=== PATIENT | male | born 1970 | race Caucasian/White ===

== ENCOUNTER 2024-03-10 12:05 | Outpatient (CLI) | payer BC ==
[2024-03-10 15:13] LABS: BASOPHILS # (AUTO) 0.1 X10'3 (0-0.2); BASOPHILS % (AUTO) 1.1 % (0-1); EOSINOPHILS # (AUTO) 0.1 X10'3 (0-0.9); EOSINOPHILS % (AUTO) 1.2 % (0-6); HEMATOCRIT 45.6 % (42.0-52.0); HEMOGLOBIN 15.5 g/dl (14.0-17.9); LYMPHOCYTES # (AUTO) 1.6 X10'3 (1.1-4.8); LYMPHOCYTES % (AUTO) 25.6 % (21-51); MEAN CORPUSCULAR HEMOGLOBIN 29.4 PG (27.0-31.0); MEAN CORPUSCULAR HGB CONC 34.1 g/dL (33.0-36.5); MEAN CORPUSCULAR VOLUME 86.2 FL (78-98); MEAN PLATELET VOLUME 7.6 FL (7.4-10.4); MONOCYTES # (AUTO) 0.7 X10'3 (0-0.9); MONOCYTES % (AUTO) 11.3 % (2-12); NEUTROPHILS # (AUTO) 3.8 X10'3 (1.8-7.7); NEUTROPHILS % (AUTO) 60.8 % (42-75); PLATELET COUNT 372 X10'3 (140-440); RED BLOOD COUNT 5.29 X10'6 (4.70-6.10); RED CELL DISTRIBUTION WIDTH 14.2 % (11.5-14.5); WHITE BLOOD COUNT 6.3 X10'3 (4.5-11.0)
[2024-03-10 15:45] LABS: ALANINE AMINOTRANSFERASE 22 U/L (12-78); ALBUMIN 3.5 G/DL (3.4-5.0); ALBUMIN/GLOBULIN RATIO 0.8 (1.1-1.5); ALKALINE PHOSPHATASE 81 IU/L (46-116); ANION GAP 8 (8-16); BILIRUBIN,TOTAL 0.5 MG/DL (0.1-1.0); BLOOD UREA NITROGEN 21 MG/DL (7-18); BUN/CREATININE RATIO 17.6 (10.0-20.0); CALCIUM 8.9 MG/DL (8.5-10.1); CHLORIDE 108 MMOL/L (99-107); CHOL/HDL RATIO 3.2 (0.00-4.99); CHOLESTEROL 179 MG/DL (0-200); CREATININE 1.19 MG/DL (0.60-1.10); GLUCOSE 106 MG/DL (70-104); HDL CHOLESTEROL 56 MG/DL (35-60); LDL CHOLESTEROL 108 MG/DL (50-100); POTASSIUM 4.1 MMOL/L (3.5-5.1); SODIUM 142 MMOL/L (135-145); THYROID STIMULATING HORMONE 0.77 ulU/ml (0.34-4.50); TOTAL CARBON DIOXIDE 25.6 MMOL/L (24-32); TOTAL PROTEIN 7.7 G/DL (6.4-8.2); TRIGLYCERIDES 66 MG/DL (20-135); eGFR 63 ML/MIN
[2024-03-10 16:16] LABS: ASPARTATE AMINO TRANSFERASE 14 U/L (10-37)
[2024-03-12 11:10] LABS: PSA, ULTRASENSITIVE W/O SERIAL 11.4 ng/mL (0.000-4.000); THYROXINE (T4) 10.1 ug/dL (4.5-12.0)
== END 2024-03-10 23:59 | disposition home or self-care (01) ==
LOC: US 12:05
PROVIDERS: ATTEND Nurse Practitioner Family
DX: Z12.5 Encounter for screening for malignant neoplasm of prostate (principal); Z13.29 Encounter for screening for other suspected endocrine disorder; Z00.01 Encounter for general adult medical examination with abnormal findings; N39.0 Urinary tract infection, site not specified; E55.9 Vitamin D deficiency, unspecified
CPT/HCPCS: 36415; 76770; 80053; 80061; 82652; 84153; 84436; 84443; 85025

== ENCOUNTER 2024-03-27 14:39 | Outpatient (CLI) | payer BC | END 2024-03-27 23:59 | disposition home or self-care (01) | LOC: RAD 14:39 | PROVIDERS: ATTEND Nurse Practitioner Family | DX: R97.20 Elevated prostate specific antigen [PSA] (principal); R33.9 Retention of urine, unspecified; Z87.448 Personal history of other diseases of urinary system | CPT/HCPCS: 76770 ==

== ENCOUNTER 2024-04-03 14:00 | Outpatient (CLI) | payer BC, MEDICAID | END 2024-04-03 23:59 | disposition home or self-care (01) | LOC: RAD 14:00 | PROVIDERS: ATTEND Podiatrist Foot & Ankle Surgery | DX: M19.071 Primary osteoarthritis, right ankle and foot (principal); M77.31 Calcaneal spur, right foot; M25.474 Effusion, right foot; M25.471 Effusion, right ankle; M25.472 Effusion, left ankle; M24.071 Loose body in right ankle; M21.6X1 Other acquired deformities of right foot; M21.6X2 Other acquired deformities of left foot; M79.671 Pain in right foot; M79.672 Pain in left foot; T84.84XA Pain due to internal orthopedic prosthetic devices, implants and grafts, initial encounter; M25.571 Pain in right ankle and joints of right foot; M25.572 Pain in left ankle and joints of left foot; Y82.8 Other medical devices associated with adverse incidents | CPT/HCPCS: 73700 ==

== ENCOUNTER 2024-04-09 21:16 | Emergency (ER) | payer BC, MEDICAID ==
[~2024-04-09] VITALS: Ht 193 cm; Wt 165.9 kg
[2024-04-09 22:09] LABS: BASOPHILS # (AUTO) 0.1 X10'3 (0-0.2); EOSINOPHILS % (AUTO) 0.4 % (0-6); HEMATOCRIT 51.5 % (42.0-52.0); HEMOGLOBIN 17.5 g/dl (14.0-17.9); LYMPHOCYTES # (AUTO) 1.2 X10'3 (1.1-4.8); LYMPHOCYTES % (AUTO) 13.5 % (21-51); MEAN CORPUSCULAR HEMOGLOBIN 28.6 PG (27.0-31.0); MEAN CORPUSCULAR VOLUME 84.1 FL (78-98); MONOCYTES # (AUTO) 0.5 X10'3 (0-0.9); NEUTROPHILS # (AUTO) 7.2 X10'3 (1.8-7.7); NEUTROPHILS % (AUTO) 79.1 % (42-75); PLATELET COUNT 250 X10'3 (140-440); RED BLOOD COUNT 6.12 X10'6 (4.70-6.10); RED CELL DISTRIBUTION WIDTH 14.3 % (11.5-14.5); WHITE BLOOD COUNT 9.1 X10'3 (4.5-11.0)
[2024-04-09 22:47] LABS: ALANINE AMINOTRANSFERASE 82 U/L (12-78); ALBUMIN 3.2 G/DL (3.4-5.0); ALBUMIN/GLOBULIN RATIO 0.9 (1.1-1.5); ANION GAP 16 (8-16); ASPARTATE AMINO TRANSFERASE 42 U/L (10-37); BILIRUBIN,TOTAL 0.7 MG/DL (0.1-1.0); BLOOD UREA NITROGEN 21 MG/DL (7-18); BUN/CREATININE RATIO 17.8 (10.0-20.0); CALCIUM 7.9 MG/DL (8.5-10.1); CHLORIDE 102 MMOL/L (99-107); CREATININE 1.18 MG/DL (0.60-1.10); GLUCOSE 156 MG/DL (70-104); POTASSIUM 4.2 MMOL/L (3.5-5.1); PRO BRAIN NATRIURETIC PEPTIDE < 30 PG/ML (0-125); SODIUM 138 MMOL/L (135-145); TOTAL CARBON DIOXIDE 20.5 MMOL/L (24-32); TOTAL PROTEIN 6.9 G/DL (6.4-8.2); eCRCL 87 ML/MIN; eGFR 64 ML/MIN
[2024-04-09 22:54] LABS: ALKALINE PHOSPHATASE 93 IU/L (46-116)
[2024-04-09] MEDS: ondansetron/PF 4mg/2ml inj IV ONE (23:34)
[2024-04-10] MEDS: magnesium hydroxide 30ml (MOM) UD suspension PO ONE (00:35)
[2024-04-10] MEDS: LIDOcaine 2% Viscous 15ml cup MM ONE (00:35)
[2024-04-10] MEDS: pantoprazole 40 MG vial IV ONE (02:29)
[2024-04-10] MEDS: ondansetron/PF 4mg/2ml inj IV ONE (02:31)
[2024-04-10] MEDS: acetaminophen 1,000mg/100ml IV 100 ML IV ONE (02:32)
[2024-04-10] MEDS: LORazepam 2 mg/ml vial IV ONE ×2 (02:32→03:45)
[2024-04-10] MEDS: normal saline 1000ML IV soln IVB ONE (03:38)
[2024-04-10] MEDS: ketorolac trometh 15mg/ml vial 15 MG/ML ML IV ONE (04:06)
[2024-04-10 04:29] VITALS: TEMP 97.8
[2024-04-10] MEDS ORDERED: ONDA-243 PO (05:04)
[2024-04-10] MEDS: normal saline 1000ml 1,000 ML IV ONE (05:10)
[2024-04-10] MEDS: morphine 4 MG/ML inj SYRINge IV ONE (05:55)
[2024-04-10] MEDS: proCHLORperazine 10 MG/2 ml inj IV ONE (05:55)
[2024-04-10 07:34] VITALS: BP 158/108; PULSE 92; RESP 18; O2SAT 96
[2024-04-11] MEDS ORDERED: NALT50TA5 PO (04:25)
[2024-04-11] MEDS ORDERED: TYL650S RC (04:25)
[2024-04-11] MEDS ORDERED: PANT40TA54 PO (04:25)
== END 2024-04-10 07:15 | disposition home or self-care (01) ==
LOC: ER 21:17 → EEVIPCON 21:17 → ER 04-10 07:15
DX: F10.10 Alcohol abuse, uncomplicated (principal); R11.2 Nausea with vomiting, unspecified; K29.20 Alcoholic gastritis without bleeding; Z88.2 Allergy status to sulfonamides; Y90.9 Presence of alcohol in blood, level not specified
CPT/HCPCS: 36415; 71045; 80053; 83880; 84484; 85025; 93005; 96361; 96365; 96368; 96375; 96376; 99285; J0131; J0780; J1885; J2060; J2270; J2405; J2470; J7030; A4615

== ENCOUNTER 2024-04-11 02:28 | Inpatient (IN) | payer BC, MEDICAID ==
[~2024-04-11] VITALS: Ht 193 cm; Wt 176.8 kg
[~2024-04-11 02:28] MED LIST: ONDA-243 PO
[2024-04-11 03:19] LABS: BASOPHILS # (AUTO) 0.1 X10'3 (0-0.2); BASOPHILS % (AUTO) 0.6 % (0-1); EOSINOPHILS # (AUTO) 0.1 X10'3 (0-0.9); EOSINOPHILS % (AUTO) 0.9 % (0-6); HEMATOCRIT 46.8 % (42.0-52.0); LYMPHOCYTES # (AUTO) 1.6 X10'3 (1.1-4.8); MEAN CORPUSCULAR HEMOGLOBIN 28.8 PG (27.0-31.0); MEAN CORPUSCULAR HGB CONC 34.3 g/dL (33.0-36.5); MEAN CORPUSCULAR VOLUME 83.8 FL (78-98); MONOCYTES # (AUTO) 0.6 X10'3 (0-0.9); MONOCYTES % (AUTO) 6.6 % (2-12); NEUTROPHILS # (AUTO) 7.4 X10'3 (1.8-7.7); NEUTROPHILS % (AUTO) 75.9 % (42-75); PLATELET COUNT 203 X10'3 (140-440); RED BLOOD COUNT 5.58 X10'6 (4.70-6.10); RED CELL DISTRIBUTION WIDTH 14.4 % (11.5-14.5); WHITE BLOOD COUNT 9.8 X10'3 (4.5-11.0)
[2024-04-11 03:32] LABS: ALANINE AMINOTRANSFERASE 58 U/L (12-78); ALBUMIN 3.2 G/DL (3.4-5.0); ALKALINE PHOSPHATASE 100 IU/L (46-116); ANION GAP 11 (8-16); ASPARTATE AMINO TRANSFERASE 30 U/L (10-37); BLOOD UREA NITROGEN 24 MG/DL (7-18); CHLORIDE 103 MMOL/L (99-107); CREATININE 1.33 MG/DL (0.60-1.10); GLUCOSE 111 MG/DL (70-104); POTASSIUM 3.9 MMOL/L (3.5-5.1); SODIUM 135 MMOL/L (135-145); TOTAL CARBON DIOXIDE 20.9 MMOL/L (24-32); TOTAL PROTEIN 6.5 G/DL (6.4-8.2); eCRCL 77 ML/MIN; eGFR 56 ML/MIN
[2024-04-11] MEDS: ondansetron/PF 4mg/2ml inj IV ONE (03:32)
[2024-04-11] MEDS: morphine 4 MG/ML inj SYRINge IV ONE (03:32)
[2024-04-11 03:43] LABS: LIPASE > 375 U/L (16-77)
[2024-04-11] MEDS: fentaNYL/PF 50MCG/1 ML 2ML syringe IV ONE (03:59)
[2024-04-11] MEDS: normal saline 1000ML IV soln IVB ONE (04:02)
[2024-04-11] MEDS ORDERED: TYL650S RC (04:25)
[2024-04-11] MEDS ORDERED: PANT40TA54 PO (04:25)
[2024-04-11] MEDS ORDERED: NALT50TA5 PO (04:25)
[2024-04-11] MEDS ORDERED: acetaminophen 325mg tablet PO PRN (04:45)
[2024-04-11] MEDS ORDERED: mag hydrox/Alum hydrox/simeth 30ml oral suspension PO PRN (04:45)
[2024-04-11] MEDS ORDERED: magnesium Cl slow-release 64mg tablet PO PRN (04:45)
[2024-04-11] MEDS ORDERED: HYDROmorphone/PF 0.2 MG/ML SYRINGE IV PRN (04:45)
[2024-04-11] MEDS ORDERED: ondansetron/PF 4mg/2ml inj IV PRN (04:45)
[2024-04-11] MEDS ORDERED: potassium Cl 20 mEq SR tablet PO PRN ×2 (04:45)
[2024-04-11] MEDS ORDERED: magnesium sulf-water 4G/100mL 100 ML IV PRN (04:45)
[2024-04-11] MEDS ORDERED: magnesium sulf-water 2g/50mL 50 ML IV PRN (04:45)
[2024-04-11] MEDS ORDERED: potassium Cl 40MEQ/1/2NS 520ml 520 ML IV PRN (04:45)
[2024-04-11] MEDS ORDERED: HYDROmorphone inj. 0.5 MG/0.5 ML DISP.SYRIN IV PRN (04:45)
[2024-04-11] MEDS: metoclopramide 5 mg/ml inj IV SCH (04:50)
[2024-04-11] MEDS: HYDROmorphone inj. 0.5 MG/0.5 ML DISP.SYRIN IV ONE ×2 (05:06→06:50)
[2024-04-11] MEDS: pantoprazole 40 MG vial IV SCH (05:57)
[2024-04-11] MEDS: K and/or MAG REPLACEMENT MC SCH (06:34)
[2024-04-11] MEDS: docusate sod 100mg capsule PO SCH (06:34)
[2024-04-11] MEDS: normal saline 1000ml 1,000 ML IV ONE (06:49)
[2024-04-11] MEDS ORDERED: LORazepam 2 mg/ml vial IV PRN (06:50)
[2024-04-11] MEDS: normal saline 1000ml 1,000 ML IV SCH (06:50)
[2024-04-11] MEDS ORDERED: haloperidol lactate 5mg/ml inj IM PRN ×2 (06:50→13:15)
[2024-04-11 07:28] LABS: MAGNESIUM 2.3 MG/DL (1.5-2.4); POTASSIUM 3.9 MMOL/L (3.5-5.1)
[2024-04-11 07:30] LABS: BILIRUBIN,URINE NEGATIVE (Neg); CLARITY,URINE CLEAR (Clear); COLOR,URINE YELLOW (Yellow); GLUCOSE, URINE NEGATIVE (Neg); KETONES,URINE NEGATIVE (Neg); LEUKOCYTE ESTERASE ,URINE NEGATIVE (Neg); NITRITES, URINE NEGATIVE (Neg); OCCULT BLOOD,URINE NEGATIVE (Neg); PROTEIN,URINE NEGATIVE (Neg); UA COLLECTION TYPE NON-SPECIFIED; UROBILINOGEN,URINE 0.2 E.U/dL (0.2-1.0)
[2024-04-11] MEDS: thiamine 100mg/ml 2ml inj. IV SCH (07:35)
[2024-04-11] MEDS: multivitamins, therapeutics tablet PO SCH (07:36)
[2024-04-11] MEDS: folic acid 1mg/0.2ml inj IV SCH (07:37)
[2024-04-11 07:53] LABS: LIPASE > 375 U/L (16-77)
[2024-04-11 08:18] LABS: OSMOLALITY 285 MOSM/K (280-300)
[2024-04-11] MEDS: ketorolac trometh 15mg/ml vial 15 MG/ML ML IV ONE (08:39)
[2024-04-11 08:42] LABS: CHOL/HDL RATIO 3.4 (0.00-4.99); CHOLESTEROL 162 MG/DL (0-200); HDL CHOLESTEROL 47 MG/DL (35-60); LDL CHOLESTEROL 81 MG/DL (50-100); TRIGLYCERIDES 251 MG/DL (20-135)
[2024-04-11] MEDS: HYDROmorphone 1 mg/ml syringe IV ONE (10:53)
[2024-04-11 11:03] VITALS: BP 155/88; PULSE 85; RESP 20; O2SAT 95
[2024-04-11] MEDS: HYDROmorphone inj. 0.5 MG/0.5 ML DISP.SYRIN IV PRN (13:07)
[2024-04-11] MEDS: dextrose 5%-normal saline 1,000 ML IV SCH (13:45)
[2024-04-11] MEDS: LORazepam 2 mg/ml vial IV PRN (17:36)
[2024-04-11 18:00] VITALS: BP 149/72; PULSE 92; RESP 18; TEMP 98.1; O2SAT 97
[2024-04-11] MEDS: chlordiazePOXIDE 25mg capsule PO SCH (19:23)
[2024-04-11 20:00] VITALS: RESP 18; O2SAT 97
[2024-04-11 22:00] VITALS: BP 161/79; PULSE 92; RESP 18; TEMP 97.1; O2SAT 93
[2024-04-12 05:00] VITALS: BP 177/90; PULSE 98; RESP 18; TEMP 98.4; O2SAT 94
[2024-04-12] MEDS: hydrALAZINE 20mg/ml inj. IV ONE (05:49)
[2024-04-12 06:56] LABS: BASOPHILS % (AUTO) 0.3 % (0-1); EOSINOPHILS # (AUTO) 0.2 X10'3 (0-0.9); EOSINOPHILS % (AUTO) 2.6 % (0-6); HEMATOCRIT 40.7 % (42.0-52.0); HEMOGLOBIN 13.8 g/dl (14.0-17.9); LYMPHOCYTES # (AUTO) 0.9 X10'3 (1.1-4.8); LYMPHOCYTES % (AUTO) 12.5 % (21-51); MEAN CORPUSCULAR HEMOGLOBIN 29.1 PG (27.0-31.0); MEAN CORPUSCULAR VOLUME 85.4 FL (78-98); MEAN PLATELET VOLUME 8.3 FL (7.4-10.4); MONOCYTES # (AUTO) 0.4 X10'3 (0-0.9); MONOCYTES % (AUTO) 6.2 % (2-12); NEUTROPHILS # (AUTO) 5.5 X10'3 (1.8-7.7); NEUTROPHILS % (AUTO) 78.4 % (42-75); PLATELET COUNT 166 X10'3 (140-440); RED BLOOD COUNT 4.76 X10'6 (4.70-6.10); RED CELL DISTRIBUTION WIDTH 14.4 % (11.5-14.5)
[2024-04-12 07:07] LABS: PROTHROMBIN TIME 10.5 SECONDS (9.0-12.0)
[2024-04-12 07:15] LABS: ALANINE AMINOTRANSFERASE 117 U/L (12-78); ALBUMIN 2.8 G/DL (3.4-5.0); ALBUMIN/GLOBULIN RATIO 0.8 (1.1-1.5); ALKALINE PHOSPHATASE 172 IU/L (46-116); AMYLASE 385 U/L (25-115); ANION GAP 7 (8-16); ASPARTATE AMINO TRANSFERASE 98 U/L (10-37); BILIRUBIN,TOTAL 0.9 MG/DL (0.1-1.0); BLOOD UREA NITROGEN 16 MG/DL (7-18); CALCIUM 7.7 MG/DL (8.5-10.1); CHLORIDE 105 MMOL/L (99-107); CREATININE 1.07 MG/DL (0.60-1.10); GLUCOSE 105 MG/DL (70-104); PHOSPHORUS 3.3 MG/DL (2.3-4.5); SODIUM 136 MMOL/L (135-145); TOTAL CARBON DIOXIDE 23.6 MMOL/L (24-32); TOTAL PROTEIN 6.1 G/DL (6.4-8.2); eCRCL 96 ML/MIN; eGFR 72 ML/MIN
[2024-04-12 07:26] LABS: LIPASE > 375 U/L (16-77)
[2024-04-12 09:28] LABS: TOTAL PROTEIN,URINE RANDOM 29.1 MG/DL
[2024-04-12 10:00] VITALS: BP 153/90; PULSE 97; RESP 18; TEMP 98; O2SAT 96
[2024-04-12 18:00] VITALS: BP 147/78; PULSE 101; RESP 18; TEMP 97.6; O2SAT 94
[2024-04-12] MEDS ORDERED: HYDROmorphone/PF 0.2 MG/ML SYRINGE IV PRN (18:10)
[2024-04-12] MEDS: ringers solution, lacted 1,000 ML IV SCH (18:46)
[2024-04-12] MEDS: haloperidol 5mg tablet PO PRN (18:50)
[2024-04-12 20:00] VITALS: RESP 18; O2SAT 94
[2024-04-12 22:00] VITALS: BP 153/98; PULSE 92; RESP 19; TEMP 97.6; O2SAT 93
[2024-04-13 06:00] VITALS: BP 138/78; PULSE 90; RESP 20; TEMP 98.1; O2SAT 95
[2024-04-13] MEDS: HYDROmorphone inj. 0.5 MG/0.5 ML DISP.SYRIN IV PRN (07:38)
[2024-04-13 08:04] LABS: BASOPHILS % (AUTO) 0.4 % (0-1); EOSINOPHILS # (AUTO) 0.2 X10'3 (0-0.9); EOSINOPHILS % (AUTO) 3.4 % (0-6); HEMOGLOBIN 13.4 g/dl (14.0-17.9); LYMPHOCYTES # (AUTO) 0.9 X10'3 (1.1-4.8); MEAN CORPUSCULAR HEMOGLOBIN 28.9 PG (27.0-31.0); MEAN CORPUSCULAR HGB CONC 33.6 g/dL (33.0-36.5); MEAN PLATELET VOLUME 8.1 FL (7.4-10.4); MONOCYTES # (AUTO) 0.4 X10'3 (0-0.9); NEUTROPHILS # (AUTO) 4.8 X10'3 (1.8-7.7); NEUTROPHILS % (AUTO) 75.2 % (42-75); PLATELET COUNT 153 X10'3 (140-440); RED BLOOD COUNT 4.65 X10'6 (4.70-6.10); RED CELL DISTRIBUTION WIDTH 14.7 % (11.5-14.5); WHITE BLOOD COUNT 6.3 X10'3 (4.5-11.0)
[2024-04-13 08:16] LABS: ALANINE AMINOTRANSFERASE 73 U/L (12-78); ALBUMIN 2.5 G/DL (3.4-5.0); ALBUMIN/GLOBULIN RATIO 0.7 (1.1-1.5); ALKALINE PHOSPHATASE 142 IU/L (46-116); ANION GAP 7 (8-16); ASPARTATE AMINO TRANSFERASE 41 U/L (10-37); BILIRUBIN,TOTAL 0.8 MG/DL (0.1-1.0); BLOOD UREA NITROGEN 10 MG/DL (7-18); BUN/CREATININE RATIO 11.5 (10.0-20.0); CALCIUM 7.7 MG/DL (8.5-10.1); CHLORIDE 106 MMOL/L (99-107); CREATININE 0.87 MG/DL (0.60-1.10); GLUCOSE 94 MG/DL (70-104); MAGNESIUM 2.2 MG/DL (1.5-2.4); PHOSPHORUS 3.3 MG/DL (2.3-4.5); SODIUM 138 MMOL/L (135-145); TOTAL CARBON DIOXIDE 24.6 MMOL/L (24-32); TOTAL PROTEIN 5.9 G/DL (6.4-8.2); eCRCL 118 ML/MIN; eGFR > 90 ML/MIN
[2024-04-13 08:38] LABS: PROTHROMBIN TIME 10.2 SECONDS (9.0-12.0)
[2024-04-13 08:41] LABS: LIPASE > 375 U/L (16-77)
[2024-04-13] MEDS: magnesium hydroxide 30ml (MOM) UD suspension PO PRN (09:17)
[2024-04-13 11:00] VITALS: BP 124/73; PULSE 84; RESP 19; TEMP 97.5; O2SAT 94
[2024-04-13] MEDS ORDERED: morphine 2 MG/ML inj. syringe IV PRN (11:10)
[2024-04-13] MEDS ORDERED: methylnaltrexone br 12mg/0.6ml inj***SubQ only SQ PRN (11:10)
[2024-04-13] MEDS ORDERED: HYDROcodone/acetaminophen 5mg/325mg tablet PO PRN (11:10)
[2024-04-13] MEDS: morphine 2 MG/ML inj. syringe IV PRN (11:21)
[2024-04-13] MEDS: HYDROcodone/acetaminophen 10/325mg tab PO PRN (14:39)
[2024-04-13] MEDS: LORazepam 2 mg/ml vial IV PRN (14:41)
[2024-04-13 18:00] VITALS: BP 158/96; PULSE 90; RESP 17; TEMP 98.1; O2SAT 95
[2024-04-13 20:10] VITALS: RESP 18
[2024-04-13] MEDS: polyethylene glycol 3350 17gm powd pack PO SCH (20:33)
[2024-04-13 22:00] VITALS: BP 133/81; PULSE 109; RESP 12; TEMP 97.4; O2SAT 98
[2024-04-13] MEDS ORDERED: guaiFENesin 200 MG/10 ML oral syrup UD cup PO PRN (22:45)
[2024-04-13] MEDS: guaiFENesin 200 MG/10 ML oral syrup UD cup PO PRN (23:11)
[2024-04-14] MEDS: LORazepam 1 MG tablet PO PRN (00:17)
[2024-04-14 06:00] VITALS: BP 143/98; PULSE 90; RESP 14; TEMP 97.3; O2SAT 94
[2024-04-14 06:19] LABS: BASOPHILS % (AUTO) 0.7 % (0-1); EOSINOPHILS # (AUTO) 0.3 X10'3 (0-0.9); EOSINOPHILS % (AUTO) 5.8 % (0-6); HEMATOCRIT 37.5 % (42.0-52.0); HEMOGLOBIN 12.8 g/dl (14.0-17.9); LYMPHOCYTES # (AUTO) 1.3 X10'3 (1.1-4.8); MEAN CORPUSCULAR HEMOGLOBIN 29.2 PG (27.0-31.0); MEAN CORPUSCULAR HGB CONC 34.1 g/dL (33.0-36.5); MEAN CORPUSCULAR VOLUME 85.6 FL (78-98); MEAN PLATELET VOLUME 7.9 FL (7.4-10.4); MONOCYTES # (AUTO) 0.5 X10'3 (0-0.9); MONOCYTES % (AUTO) 9.1 % (2-12); NEUTROPHILS # (AUTO) 3.2 X10'3 (1.8-7.7); NEUTROPHILS % (AUTO) 60.4 % (42-75); PLATELET COUNT 194 X10'3 (140-440); RED BLOOD COUNT 4.38 X10'6 (4.70-6.10); RED CELL DISTRIBUTION WIDTH 14.4 % (11.5-14.5); WHITE BLOOD COUNT 5.3 X10'3 (4.5-11.0)
[2024-04-14 06:51] LABS: PROTHROMBIN TIME 10.3 SECONDS (9.0-12.0)
[2024-04-14 07:02] LABS: ALANINE AMINOTRANSFERASE 62 U/L (12-78); ALBUMIN 2.7 G/DL (3.4-5.0); ALBUMIN/GLOBULIN RATIO 0.7 (1.1-1.5); ALKALINE PHOSPHATASE 131 IU/L (46-116); ANION GAP 9 (8-16); ASPARTATE AMINO TRANSFERASE 30 U/L (10-37); BILIRUBIN,TOTAL 0.6 MG/DL (0.1-1.0); BLOOD UREA NITROGEN 6 MG/DL (7-18); BUN/CREATININE RATIO 6.5 (10.0-20.0); CALCIUM 8.3 MG/DL (8.5-10.1); CHLORIDE 105 MMOL/L (99-107); CREATININE 0.92 MG/DL (0.60-1.10); GLUCOSE 107 MG/DL (70-104); LIPASE 312 U/L (16-77); MAGNESIUM 2.1 MG/DL (1.5-2.4); PHOSPHORUS 2.9 MG/DL (2.3-4.5); POTASSIUM 4.1 MMOL/L (3.5-5.1); SODIUM 137 MMOL/L (135-145); TOTAL CARBON DIOXIDE 23.5 MMOL/L (24-32); TOTAL PROTEIN 6.6 G/DL (6.4-8.2); eCRCL 111 ML/MIN; eGFR 85 ML/MIN
[2024-04-14 10:00] VITALS: BP 161/98; PULSE 95; RESP 16; TEMP 97.6; O2SAT 96
[2024-04-14] MEDS ORDERED: FOLI0.4T6 PO (10:56)
[2024-04-14] MEDS ORDERED: MULT-1085 PO (10:56)
[2024-04-14] MEDS ORDERED: THIA50TA10 PO (10:56)
[2024-04-14 11:34] LABS: HEMOGLOBIN A1C 5.6 % (4.5-6.2)
[2024-04-14] MEDS ORDERED: HYDR-3965 PO (13:36)
[2024-04-15] MEDS ORDERED: LORazepam 1 MG tablet PO PRN (13:15)
[2024-04-15] MEDS ORDERED: LORazepam 2 mg/ml vial IV PRN (13:15)
== END 2024-04-14 13:39 | disposition home or self-care (01) | DRG 438 ==
LOC: ER 02:28 → UNDOADMIN 04:42 → ED HOLD 04:42 → EEVIPCON 04:42 → ED HOLD 09:21 → EDBEDREQTM 09:37 → EDBEDREQSVC 09:37 → ORTHO 4S 10:25 → ED HOLD 10:25
PROVIDERS: ADMIT Internal Medicine Critical Care Medicine; ATTEND Family Medicine
PROC: 05HY33Z Insertion of Infusion Device into Upper Vein, Percutaneous Approach (ICD-10-PCS; principal; 2024-04-11)
PROC: B54NZZA Ultrasonography of Left Upper Extremity Veins, Guidance (ICD-10-PCS; 2024-04-11)
DX: K85.20 Alcohol induced acute pancreatitis without necrosis or infection (principal); N17.0 Acute kidney failure with tubular necrosis; Z68.42 Body mass index [BMI] 45.0-49.9, adult; E66.01 Morbid (severe) obesity due to excess calories; F10.10 Alcohol abuse, uncomplicated; Z98.84 Bariatric surgery status
CPT/HCPCS: 36410; 36415; 74176; 76937; 80053; 80061; 81003; 82150; 82570; 83036; 83690; 83735; 83930; 83935; 84100; 84132; 84156; 84300; 85025; 85610; 87081; 87207; 96374; 96375; 99285; A4615; C1751; G0378; J0360; J1171; J1885; J2060; J2270; J2405; J2470; J2765; J3010; J3411; J3490; J7030; J7042; J7120

== ENCOUNTER 2024-05-14 02:22 | Inpatient (IN) | payer BC, MEDICAID ==
[~2024-05-14] VITALS: Ht 193 cm; Wt 163.0 kg
[2024-05-14] VITALS (7 sets, daily range): BP systolic 127–195; BP diastolic 76–100; PULSE 65–97; RESP 15–27; TEMP 97.3–98.5; O2SAT 94–96
[~2024-05-14 02:22] MED LIST changes: +FOLI0.4T6 PO; +MULT-1085 PO; +NALT50TA5 PO; +PANT40TA54 PO; +THIA50TA10 PO; +TYL650S RC
[2024-05-14 02:45] LABS: BASOPHILS # (AUTO) 0.1 X10'3 (0-0.2); BASOPHILS % (AUTO) 1.2 % (0-1); EOSINOPHILS % (AUTO) 0.3 % (0-6); HEMATOCRIT 44.8 % (42.0-52.0); HEMOGLOBIN 15.1 g/dl (14.0-17.9); LYMPHOCYTES # (AUTO) 1.4 X10'3 (1.1-4.8); MEAN CORPUSCULAR HEMOGLOBIN 28.6 PG (27.0-31.0); MEAN CORPUSCULAR HGB CONC 33.7 g/dL (33.0-36.5); MEAN CORPUSCULAR VOLUME 85.1 FL (78-98); MEAN PLATELET VOLUME 6.9 FL (7.4-10.4); MONOCYTES # (AUTO) 0.4 X10'3 (0-0.9); MONOCYTES % (AUTO) 4.4 % (2-12); NEUTROPHILS % (AUTO) 80.1 % (42-75); PLATELET COUNT 280 X10'3 (140-440); RED BLOOD COUNT 5.26 X10'6 (4.70-6.10); RED CELL DISTRIBUTION WIDTH 16.4 % (11.5-14.5); WHITE BLOOD COUNT 9.9 X10'3 (4.5-11.0)
[2024-05-14 02:58] LABS: ALANINE AMINOTRANSFERASE 103 U/L (12-78); ALBUMIN/GLOBULIN RATIO 0.9 (1.1-1.5); ALKALINE PHOSPHATASE 218 IU/L (46-116); ANION GAP 10 (8-16); ASPARTATE AMINO TRANSFERASE 77 U/L (10-37); BILIRUBIN,TOTAL 0.6 MG/DL (0.1-1.0); BLOOD UREA NITROGEN 12 MG/DL (7-18); BUN/CREATININE RATIO 12.8 (10.0-20.0); CALCIUM 7.7 MG/DL (8.5-10.1); CHLORIDE 99 MMOL/L (99-107); CREATININE 0.94 MG/DL (0.60-1.10); GLUCOSE 117 MG/DL (70-104); SODIUM 135 MMOL/L (135-145); TOTAL PROTEIN 6.4 G/DL (6.4-8.2); eCRCL 109 ML/MIN; eGFR 83 ML/MIN
[2024-05-14 03:06] LABS: ETHANOL 14 MG/DL (<10); PRO BRAIN NATRIURETIC PEPTIDE 47 PG/ML (0-125)
[2024-05-14 03:21] LABS: LIPASE 43 U/L (16-77)
[2024-05-14] MEDS: diazepam 5mg tablet PO ONE (03:23)
[2024-05-14] MEDS: ondansetron 4mg rapidly disintigrating tab PO ONE (03:24)
[2024-05-14] MEDS: ketorolac trometh 30MG/ML vial 30 MG/ML VIAL IV ONE (03:51)
[2024-05-14] MEDS ORDERED: potassium Cl 20 mEq SR tablet PO PRN ×2 (04:05)
[2024-05-14] MEDS ORDERED: haloperidol 5mg tablet PO PRN (04:05)
[2024-05-14] MEDS ORDERED: acetaminophen 325mg tablet PO PRN (04:05)
[2024-05-14] MEDS ORDERED: potassium Cl 40MEQ/1/2NS 520ml 520 ML IV PRN (04:05)
[2024-05-14] MEDS ORDERED: mag hydrox/Alum hydrox/simeth 30ml oral suspension PO PRN (04:05)
[2024-05-14] MEDS ORDERED: dicyclomine 10 MG capsule PO PRN (04:05)
[2024-05-14] MEDS ORDERED: haloperidol lactate 5mg/ml inj IM PRN ×2 (04:05→05:05)
[2024-05-14] MEDS ORDERED: magnesium Cl slow-release 64mg tablet PO PRN (04:05)
[2024-05-14] MEDS ORDERED: magnesium sulf-water 2g/50mL 50 ML IV PRN (04:05)
[2024-05-14] MEDS ORDERED: bisacodyl 10mg suppository rectal RC PRN (04:05)
[2024-05-14] MEDS ORDERED: magnesium sulf-water 4G/100mL 100 ML IV PRN (04:05)
[2024-05-14] MEDS: normal saline 1000ml 1,000 ML IV SCH (04:33)
[2024-05-14] MEDS: cloNIDine 0.1 MG/24 HOUR patch (7 day patch) TD SCH (04:40)
[2024-05-14] MEDS ORDERED: HYDR-3973 PO (06:13)
[2024-05-14 06:43] LABS: MAGNESIUM 1.8 MG/DL (1.5-2.4); POTASSIUM 4.2 MMOL/L (3.5-5.1)
[2024-05-14] MEDS: LORazepam 2 mg/ml vial IV PRN ×4 (07:18→20:31)
[2024-05-14] MEDS: ondansetron/PF 4mg/2ml inj IV PRN (07:31)
[2024-05-14] MEDS: K and/or MAG REPLACEMENT MC SCH (08:00)
[2024-05-14] MEDS: docusate sod 100mg capsule PO SCH (09:07)
[2024-05-14] MEDS: enoxaparin 40mg/0.4ml syringe SUBCUT SCH (09:08)
[2024-05-14] MEDS: thiamine 100mg/ml 2ml inj. IV SCH (09:14)
[2024-05-14] MEDS: ondansetron/PF 4mg/2ml inj IV ONE (09:15)
[2024-05-14] MEDS: cloNIDine 0.1 mg tablet PO PRN (10:37)
[2024-05-14] MEDS: HYDROcodone/acetaminophen 5mg/325mg tablet PO PRN (10:37)
[2024-05-14] MEDS: atenolol 50mg tablet PO SCH (10:37)
[2024-05-14] MEDS: folic acid 1mg/0.2ml inj IV SCH (10:37)
[2024-05-14] MEDS: cyclobenzaprine 10mg tablet PO PRN (10:39)
[2024-05-14] MEDS: magnesium hydroxide 30ml (MOM) UD suspension PO PRN (12:19)
[2024-05-14] MEDS: LidoCAINE 2% Topical Jelly 11mL syringe (UROJET) TOP ONE (12:50)
[2024-05-14] MEDS: HYDROcodone/acetaminophen 10/325mg tab PO PRN (14:38)
[2024-05-15] VITALS (7 sets, daily range): BP systolic 123–136; BP diastolic 72–84; PULSE 65–80; RESP 15–20; TEMP 97.3–98.9; O2SAT 93–97
[2024-05-15 06:55] LABS: ALANINE AMINOTRANSFERASE 57 U/L (12-78); ALBUMIN 2.6 G/DL (3.4-5.0); ALBUMIN/GLOBULIN RATIO 0.9 (1.1-1.5); ALKALINE PHOSPHATASE 163 IU/L (46-116); ANION GAP 6 (8-16); ASPARTATE AMINO TRANSFERASE 37 U/L (10-37); BILIRUBIN,TOTAL 0.5 MG/DL (0.1-1.0); BLOOD UREA NITROGEN 17 MG/DL (7-18); BUN/CREATININE RATIO 17.5 (10.0-20.0); CALCIUM 8.1 MG/DL (8.5-10.1); CHLORIDE 99 MMOL/L (99-107); CREATININE 0.97 MG/DL (0.60-1.10); GLUCOSE 95 MG/DL (70-104); MAGNESIUM 2.1 MG/DL (1.5-2.4); PHOSPHORUS 3.4 MG/DL (2.3-4.5); POTASSIUM 3.8 MMOL/L (3.5-5.1); SODIUM 133 MMOL/L (135-145); TOTAL CARBON DIOXIDE 27.7 MMOL/L (24-32); TOTAL PROTEIN 5.6 G/DL (6.4-8.2); eCRCL 106 ML/MIN; eGFR 80 ML/MIN
[2024-05-15 07:49] LABS: BASOPHILS # (AUTO) 0.1 X10'3 (0-0.2); EOSINOPHILS # (AUTO) 0.1 X10'3 (0-0.9); EOSINOPHILS % (AUTO) 2.8 % (0-6); HEMATOCRIT 40.8 % (42.0-52.0); HEMOGLOBIN 13.7 g/dl (14.0-17.9); LYMPHOCYTES # (AUTO) 1.4 X10'3 (1.1-4.8); LYMPHOCYTES % (AUTO) 27.1 % (21-51); MEAN CORPUSCULAR HEMOGLOBIN 29.1 PG (27.0-31.0); MEAN CORPUSCULAR HGB CONC 33.5 g/dL (33.0-36.5); MEAN CORPUSCULAR VOLUME 86.8 FL (78-98); MEAN PLATELET VOLUME 7.4 FL (7.4-10.4); MONOCYTES # (AUTO) 0.3 X10'3 (0-0.9); MONOCYTES % (AUTO) 6.1 % (2-12); NEUTROPHILS # (AUTO) 3.3 X10'3 (1.8-7.7); PLATELET COUNT 223 X10'3 (140-440); RED CELL DISTRIBUTION WIDTH 16.2 % (11.5-14.5); WHITE BLOOD COUNT 5.2 X10'3 (4.5-11.0)
[2024-05-15] MEDS: metoclopramide 5 mg/ml inj IV PRN (08:25)
[2024-05-15 11:37] LABS: BILIRUBIN,URINE NEGATIVE (Neg); CLARITY,URINE CLEAR (Clear); COLOR,URINE YELLOW (Yellow); GLUCOSE, URINE NEGATIVE (Neg); KETONES,URINE NEGATIVE (Neg); LEUKOCYTE ESTERASE ,URINE NEGATIVE (Neg); NITRITES, URINE NEGATIVE (Neg); OCCULT BLOOD,URINE SMALL (Neg); PROTEIN,URINE NEGATIVE (Neg); UROBILINOGEN,URINE 0.2 E.U/dL (0.2-1.0)
[2024-05-15 11:43] LABS: UA COLLECTION TYPE CLN CATCH MIDSTREAM
[2024-05-15 11:53] LABS: URINE AMPHETAMINE SCREEN NEGATIVE (Neg); URINE BARBITUATE SCREEN POSITIVE (Neg); URINE BENZODIAZEPINES SCREEN POSITIVE (Neg); URINE CANNABINOID SCREEN NEGATIVE (Neg); URINE COCAINE SCREEN NEGATIVE (Neg); URINE METHADONE SCREEN NEGATIVE (Neg); URINE OPIATE SCREEN POSITIVE (Neg); URINE PHENCYCLIDINE SCREEN NEGATIVE (Neg)
[2024-05-15 12:21] LABS: BACTERIA,URINE NONE SEEN /HPF (Neg); MUCUS STRANDS NONE SEEN /LPF (Neg); RBC,URINE 0-2 /HPF (0-2); SQUAMOUS EPITHELIAL CELL,UR FEW /LPF (FEW); WBC,URINE 0-4 /HPF (0-4)
[2024-05-16] MEDS: LORazepam 2 mg/ml vial IV PRN (05:14)
[2024-05-16 06:00] VITALS: BP 139/94; PULSE 73; RESP 17; TEMP 98.9; O2SAT 95
[2024-05-16 06:20] LABS: ALANINE AMINOTRANSFERASE 44 U/L (12-78); ALBUMIN 2.6 G/DL (3.4-5.0); ALBUMIN/GLOBULIN RATIO 0.9 (1.1-1.5); ALKALINE PHOSPHATASE 140 IU/L (46-116); ANION GAP 6 (8-16); ASPARTATE AMINO TRANSFERASE 25 U/L (10-37); BILIRUBIN,TOTAL 0.5 MG/DL (0.1-1.0); BLOOD UREA NITROGEN 14 MG/DL (7-18); BUN/CREATININE RATIO 15.4 (10.0-20.0); CALCIUM 8.1 MG/DL (8.5-10.1); CHLORIDE 101 MMOL/L (99-107); CREATININE 0.91 MG/DL (0.60-1.10); GLUCOSE 92 MG/DL (70-104); MAGNESIUM 2.1 MG/DL (1.5-2.4); PHOSPHORUS 3.5 MG/DL (2.3-4.5); POTASSIUM 4.1 MMOL/L (3.5-5.1); SODIUM 135 MMOL/L (135-145); TOTAL CARBON DIOXIDE 27.6 MMOL/L (24-32); TOTAL PROTEIN 5.6 G/DL (6.4-8.2); eCRCL 113 ML/MIN; eGFR 86 ML/MIN
[2024-05-16 06:21] LABS: BASOPHILS # (AUTO) 0.1 X10'3 (0-0.2); BASOPHILS % (AUTO) 0.8 % (0-1); EOSINOPHILS # (AUTO) 0.2 X10'3 (0-0.9); HEMATOCRIT 38.8 % (42.0-52.0); HEMOGLOBIN 13.1 g/dl (14.0-17.9); LYMPHOCYTES # (AUTO) 1.3 X10'3 (1.1-4.8); LYMPHOCYTES % (AUTO) 14.5 % (21-51); MEAN CORPUSCULAR HEMOGLOBIN 29.3 PG (27.0-31.0); MEAN CORPUSCULAR HGB CONC 33.8 g/dL (33.0-36.5); MEAN CORPUSCULAR VOLUME 86.7 FL (78-98); MEAN PLATELET VOLUME 7.7 FL (7.4-10.4); MONOCYTES # (AUTO) 0.3 X10'3 (0-0.9); MONOCYTES % (AUTO) 3.7 % (2-12); NEUTROPHILS # (AUTO) 7.2 X10'3 (1.8-7.7); PLATELET COUNT 225 X10'3 (140-440); RED BLOOD COUNT 4.47 X10'6 (4.70-6.10); RED CELL DISTRIBUTION WIDTH 15.9 % (11.5-14.5); WHITE BLOOD COUNT 9.1 X10'3 (4.5-11.0)
[2024-05-16 10:00] VITALS: BP 146/80; PULSE 80; RESP 20; TEMP 98.5; O2SAT 95
[2024-05-16 10:45] VITALS: RESP 20; O2SAT 95
[2024-05-16 18:00] VITALS: BP 133/81; PULSE 67; RESP 18; TEMP 97; O2SAT 93
[2024-05-16] MEDS: LORazepam 0.5 MG tablet PO ONE (18:04)
[2024-05-16 20:00] VITALS: RESP 18; O2SAT 93
[2024-05-16 22:00] VITALS: BP 159/88; PULSE 74; RESP 20; TEMP 98.4; O2SAT 96
[2024-05-17] MEDS: LORazepam 1 MG tablet PO PRN (01:13)
[2024-05-17 06:06] VITALS: BP 179/93; PULSE 74; RESP 16; TEMP 97.9; O2SAT 92
[2024-05-17 07:38] LABS: BASOPHILS # (AUTO) 0.1 X10'3 (0-0.2); BASOPHILS % (AUTO) 0.9 % (0-1); EOSINOPHILS # (AUTO) 0.3 X10'3 (0-0.9); EOSINOPHILS % (AUTO) 4.5 % (0-6); LYMPHOCYTES % (AUTO) 17.7 % (21-51); MEAN CORPUSCULAR HEMOGLOBIN 28.9 PG (27.0-31.0); MEAN CORPUSCULAR HGB CONC 33.3 g/dL (33.0-36.5); MEAN CORPUSCULAR VOLUME 86.6 FL (78-98); MEAN PLATELET VOLUME 7.6 FL (7.4-10.4); MONOCYTES # (AUTO) 0.4 X10'3 (0-0.9); MONOCYTES % (AUTO) 6.1 % (2-12); NEUTROPHILS # (AUTO) 4.2 X10'3 (1.8-7.7); NEUTROPHILS % (AUTO) 70.8 % (42-75); PLATELET COUNT 223 X10'3 (140-440); RED BLOOD COUNT 4.51 X10'6 (4.70-6.10); RED CELL DISTRIBUTION WIDTH 16.1 % (11.5-14.5); WHITE BLOOD COUNT 5.9 X10'3 (4.5-11.0)
[2024-05-17 07:54] LABS: ALANINE AMINOTRANSFERASE 36 U/L (12-78); ALBUMIN 2.5 G/DL (3.4-5.0); ALBUMIN/GLOBULIN RATIO 0.8 (1.1-1.5); ALKALINE PHOSPHATASE 122 IU/L (46-116); ANION GAP 7 (8-16); ASPARTATE AMINO TRANSFERASE 25 U/L (10-37); BILIRUBIN,TOTAL 0.3 MG/DL (0.1-1.0); BLOOD UREA NITROGEN 10 MG/DL (7-18); BUN/CREATININE RATIO 11.8 (10.0-20.0); CALCIUM 8.3 MG/DL (8.5-10.1); CHLORIDE 106 MMOL/L (99-107); CREATININE 0.85 MG/DL (0.60-1.10); GLUCOSE 96 MG/DL (70-104); MAGNESIUM 2.2 MG/DL (1.5-2.4); PHOSPHORUS 3.6 MG/DL (2.3-4.5); POTASSIUM 3.7 MMOL/L (3.5-5.1); SODIUM 139 MMOL/L (135-145); TOTAL PROTEIN 5.7 G/DL (6.4-8.2); eCRCL 121 ML/MIN; eGFR > 90 ML/MIN
[2024-05-17 09:14] VITALS: RESP 16; O2SAT 92
[2024-05-17 10:10] VITALS: BP 161/84; PULSE 69; RESP 18; TEMP 97.7; O2SAT 95
[2024-05-17 18:00] VITALS: BP 149/87; PULSE 69; RESP 18; TEMP 97.6; O2SAT 92
[2024-05-17 20:00] VITALS: RESP 18; O2SAT 92
[2024-05-17 22:00] VITALS: BP 122/89; PULSE 67; RESP 20; TEMP 97.5; O2SAT 93
[2024-05-18 06:00] VITALS: BP 134/74; PULSE 62; RESP 22; TEMP 97.6; O2SAT 95
[2024-05-18 08:42] LABS: BASOPHILS # (AUTO) 0.1 X10'3 (0-0.2); BASOPHILS % (AUTO) 1.3 % (0-1); EOSINOPHILS # (AUTO) 0.4 X10'3 (0-0.9); EOSINOPHILS % (AUTO) 5.5 % (0-6); HEMOGLOBIN 14.3 g/dl (14.0-17.9); LYMPHOCYTES # (AUTO) 1.4 X10'3 (1.1-4.8); LYMPHOCYTES % (AUTO) 20.8 % (21-51); MEAN CORPUSCULAR HEMOGLOBIN 28.6 PG (27.0-31.0); MEAN CORPUSCULAR HGB CONC 32.6 g/dL (33.0-36.5); MEAN CORPUSCULAR VOLUME 87.6 FL (78-98); MEAN PLATELET VOLUME 8.3 FL (7.4-10.4); MONOCYTES # (AUTO) 0.5 X10'3 (0-0.9); MONOCYTES % (AUTO) 6.7 % (2-12); NEUTROPHILS # (AUTO) 4.6 X10'3 (1.8-7.7); NEUTROPHILS % (AUTO) 65.7 % (42-75); PLATELET COUNT 127 X10'3 (140-440); RED BLOOD COUNT 5.02 X10'6 (4.70-6.10); RED CELL DISTRIBUTION WIDTH 16.2 % (11.5-14.5); WHITE BLOOD COUNT 6.9 X10'3 (4.5-11.0)
[2024-05-18 08:56] LABS: ALANINE AMINOTRANSFERASE 34 U/L (12-78); ALBUMIN 2.6 G/DL (3.4-5.0); ALBUMIN/GLOBULIN RATIO 0.8 (1.1-1.5); ALKALINE PHOSPHATASE 113 IU/L (46-116); ANION GAP 6 (8-16); ASPARTATE AMINO TRANSFERASE 25 U/L (10-37); BILIRUBIN,TOTAL 0.3 MG/DL (0.1-1.0); BLOOD UREA NITROGEN 12 MG/DL (7-18); BUN/CREATININE RATIO 15.8 (10.0-20.0); CALCIUM 8.4 MG/DL (8.5-10.1); CHLORIDE 104 MMOL/L (99-107); CREATININE 0.76 MG/DL (0.60-1.10); GLUCOSE 90 MG/DL (70-104); MAGNESIUM 2.4 MG/DL (1.5-2.4); PHOSPHORUS 3.7 MG/DL (2.3-4.5); SODIUM 135 MMOL/L (135-145); TOTAL CARBON DIOXIDE 25.3 MMOL/L (24-32); TOTAL PROTEIN 5.9 G/DL (6.4-8.2); eCRCL 135 ML/MIN; eGFR > 90 ML/MIN
[2024-05-18 08:58] LABS: POTASSIUM 4.1 MMOL/L (3.5-5.1)
[2024-05-18 11:15] VITALS: RESP 18; O2SAT 96
[2024-05-18 18:00] VITALS: BP 139/84; PULSE 66; RESP 15; TEMP 97.8; O2SAT 96
[2024-05-18 20:15] VITALS: RESP 16; O2SAT 95
[2024-05-19] MEDS: LORazepam 1 MG tablet PO ONE (05:02)
[2024-05-19 06:00] VITALS: BP 153/95; PULSE 66; RESP 18; TEMP 96.9; O2SAT 93
[2024-05-19] MEDS ORDERED: FOLI1TAB27 PO (07:13)
[2024-05-19 07:14] LABS: BASOPHILS # (AUTO) 0.1 X10'3 (0-0.2); BASOPHILS % (AUTO) 1.2 % (0-1); EOSINOPHILS # (AUTO) 0.3 X10'3 (0-0.9); EOSINOPHILS % (AUTO) 4.8 % (0-6); HEMATOCRIT 44.3 % (42.0-52.0); HEMOGLOBIN 14.5 g/dl (14.0-17.9); LYMPHOCYTES # (AUTO) 1.4 X10'3 (1.1-4.8); LYMPHOCYTES % (AUTO) 18.9 % (21-51); MEAN CORPUSCULAR HEMOGLOBIN 28.7 PG (27.0-31.0); MEAN CORPUSCULAR HGB CONC 32.7 g/dL (33.0-36.5); MEAN PLATELET VOLUME 7.7 FL (7.4-10.4); MONOCYTES # (AUTO) 0.6 X10'3 (0-0.9); MONOCYTES % (AUTO) 8.8 % (2-12); NEUTROPHILS # (AUTO) 4.8 X10'3 (1.8-7.7); NEUTROPHILS % (AUTO) 66.3 % (42-75); PLATELET COUNT 187 X10'3 (140-440); RED BLOOD COUNT 5.03 X10'6 (4.70-6.10); RED CELL DISTRIBUTION WIDTH 16.7 % (11.5-14.5); WHITE BLOOD COUNT 7.2 X10'3 (4.5-11.0)
[2024-05-19 07:22] LABS: ALANINE AMINOTRANSFERASE 39 U/L (12-78); ALBUMIN 2.8 G/DL (3.4-5.0); ALBUMIN/GLOBULIN RATIO 0.8 (1.1-1.5); ALKALINE PHOSPHATASE 110 IU/L (46-116); ANION GAP 10 (8-16); ASPARTATE AMINO TRANSFERASE 31 U/L (10-37); BILIRUBIN,TOTAL 0.3 MG/DL (0.1-1.0); BLOOD UREA NITROGEN 11 MG/DL (7-18); BUN/CREATININE RATIO 12.9 (10.0-20.0); CALCIUM 8.5 MG/DL (8.5-10.1); CHLORIDE 102 MMOL/L (99-107); CREATININE 0.85 MG/DL (0.60-1.10); GLUCOSE 98 MG/DL (70-104); PHOSPHORUS 3.9 MG/DL (2.3-4.5); SODIUM 136 MMOL/L (135-145); TOTAL CARBON DIOXIDE 23.8 MMOL/L (24-32); TOTAL PROTEIN 6.2 G/DL (6.4-8.2); eCRCL 121 ML/MIN; eGFR > 90 ML/MIN
[2024-05-19 08:00] VITALS: RESP 18; O2SAT 93
[2024-05-19 08:23] VITALS: BP_SYST 153; PULSE 66
[2024-05-19 08:26] VITALS: RESP 16
== END 2024-05-19 11:22 | disposition home or self-care (01) | DRG 775 ==
LOC: ER 02:23 → ED HOLD 04:11 → ORTHO 4S 07:45
PROVIDERS: ADMIT Internal Medicine Critical Care Medicine; ATTEND Internal Medicine
DX: F10.930 Alcohol use, unspecified with withdrawal, uncomplicated (principal); K76.0 Fatty (change of) liver, not elsewhere classified; E87.1 Hypo-osmolality and hyponatremia; I25.10 Atherosclerotic heart disease of native coronary artery without angina pectoris; F41.9 Anxiety disorder, unspecified; I48.91 Unspecified atrial fibrillation; K59.00 Constipation, unspecified; R61 Generalized hyperhidrosis; R74.01 Elevation of levels of liver transaminase levels; S01.81XA Laceration without foreign body of other part of head, initial encounter; Y90.9 Presence of alcohol in blood, level not specified; W18.39XA Other fall on same level, initial encounter; I10 Essential (primary) hypertension; M54.2 Cervicalgia; E66.01 Morbid (severe) obesity due to excess calories; Z68.41 Body mass index [BMI] 40.0-44.9, adult; Z79.899 Other long term (current) drug therapy; Z88.2 Allergy status to sulfonamides; Z90.49 Acquired absence of other specified parts of digestive tract; Y93.89 Activity, other specified; Y92.89 Other specified places as the place of occurrence of the external cause; Y99.8 Other external cause status
CPT/HCPCS: 36415; 71045; 80053; 80305; 80320; 81001; 82948; 83690; 83735; 83880; 84100; 84132; 84484; 85025; 87081; 93005; 97116; 97161; 97530; 99285; A4314; A4615; A4620; G0378; J1650; J1885; J2060; J2405; J2765; J3411; J3490; J7030

== ENCOUNTER 2024-07-24 09:23 | Emergency (ER) | payer MEDICAID ==
[~2024-07-24] VITALS: Ht 195.6 cm; Wt 171.0 kg
[~2024-07-24 09:23] MED LIST changes: -FOLI0.4T6 PO; +FOLI1TAB27 PO; +HYDR-3973 PO; -NALT50TA5 PO
--- NOTE | 2024-07-24 09:40 | ELECTROCARDIOGRAPH REPORT ---
[facility] Test Date: 2024-07-24 Test Time: 09:31:36 Pat Name: JOSIE MONTALVO Department: EMERGENCY ROOM [id number] Room: Gender: M Garnetter: : 1970 Requested By: ARIANNA ARELLANO Order Number: [id number] Reading MD: Dr. Sonny Sandy Measurements Intervals [place] Rate: 72 P: 24 IN: 163 QRS: 20 QRSD: 100 T: 52 QT: 402 QTc: 440 Interpretive Statements Sinus rhythm Abnormal R-wave progression, early transition Electronically Signed On 07-24-2024 20:39:[address] Sonny Sandy Please click the below link to view image of tracing.
[2024-07-24 10:21] LABS: BASOPHILS # (AUTO) 0.1 X10'3 (0-0.2); EOSINOPHILS # (AUTO) 0.1 X10'3 (0-0.9); EOSINOPHILS % (AUTO) 1.1 % (0-6); HEMATOCRIT 46.4 % (42.0-52.0); HEMOGLOBIN 15.7 g/dl (14.0-17.9); LYMPHOCYTES # (AUTO) 1.4 X10'3 (1.1-4.8); LYMPHOCYTES % (AUTO) 20.5 % (21-51); MEAN CORPUSCULAR HEMOGLOBIN 28.5 PG (27.0-31.0); MEAN CORPUSCULAR VOLUME 83.9 FL (78-98); MONOCYTES # (AUTO) 0.4 X10'3 (0-0.9); MONOCYTES % (AUTO) 5.9 % (2-12); NEUTROPHILS # (AUTO) 4.9 X10'3 (1.8-7.7); NEUTROPHILS % (AUTO) 71.5 % (42-75); PLATELET COUNT 267 X10'3 (140-440); RED BLOOD COUNT 5.53 X10'6 (4.70-6.10); RED CELL DISTRIBUTION WIDTH 15.2 % (11.5-14.5); WHITE BLOOD COUNT 6.9 X10'3 (4.5-11.0)
--- NOTE | 2024-07-24 10:23 | RADIOLOGY REPORT ---
CHEST RADIOGRAPH Indication: CP Technique: Single frontal view of the chest was obtained Comparison: DI CHEST,SINGLE VIEW on DOS: 05/14/24, DI CHEST,SINGLE VIEW on DOS: 04/09/24 FINDINGS: Lines and Tubes: None Lungs: No focal consolidation. Pleura: No effusion. No pneumothorax. Cardiomediastinal contours: Unremarkable Bones: No acute osseous abnormality. IMPRESSION: No acute cardiopulmonary disease.
[2024-07-24 10:35] LABS: ALANINE AMINOTRANSFERASE 27 U/L (12-78); ALBUMIN 3.6 G/DL (3.4-5.0); ALBUMIN/GLOBULIN RATIO 1.2 (1.1-1.5); ALKALINE PHOSPHATASE 91 IU/L (46-116); ANION GAP 8 (8-16); ASPARTATE AMINO TRANSFERASE 18 U/L (10-37); BILIRUBIN,TOTAL 0.5 MG/DL (0.1-1.0); BLOOD UREA NITROGEN 15 MG/DL (7-18); BUN/CREATININE RATIO 15.5 (10.0-20.0); CALCIUM 8.8 MG/DL (8.5-10.1); CHLORIDE 106 MMOL/L (99-107); CREATININE 0.97 MG/DL (0.60-1.10); GLUCOSE 105 MG/DL (70-104); POTASSIUM 4.2 MMOL/L (3.5-5.1); SODIUM 139 MMOL/L (135-145); TOTAL CARBON DIOXIDE 25.2 MMOL/L (24-32); TOTAL PROTEIN 6.7 G/DL (6.4-8.2); eCRCL 108 ML/MIN; eGFR 80 ML/MIN
[2024-07-24 10:42] LABS: PRO BRAIN NATRIURETIC PEPTIDE 72 PG/ML (0-125)
--- NOTE | 2024-07-24 11:09 | Physician Documentation ---
History of Present Illness ~ Chief Complaint: Dizziness Stated Complaint: HYPOTENSIVE DIZZINESS Time Seen by MD: 10:44 Primary Medical Doctor: SR JACOBO HPI 53-year-old male presenting for elevated blood pressures and dizziness as well as headache that occurred this morning. The patient states that he is currently in a rehabilitation facility for previous alcohol abuse and dependence. He states that he he had some headaches that were right-sided this morning and would radiate from his eye area to the back of his head. At that time there were sharp and significant so he went to the nurse's station and they took his blood pressure and it was very elevated with systolic blood pressures greater than 200. He was also feeling slightly dizzy at that time thus he was sent to the emergency department. He reports having some chest tightness at that time but no reports of any chest pain, shortness of breath or any other associated symptoms. Medication Reconciliation Allergies: Coded Allergies: Sulfa (Sulfonamide Antibiotics) (Verified Allergy, Unknown, 05/14/24) Scheduled Folic Acid* (Folic Acid*), 1 TAB PO DAILY Multivitamin (Multi Vitamin Daily), 1 TAB PO DAILY Pantoprazole Sodium (Pantoprazole Sodium), 1 TAB PO DAILY, (Reported) Thiamine HCl (Vitamin B-1), 2 TAB PO DAILY Scheduled PRN Acetaminophen (Tylenol), 650 MG RC Q6H PRN for pain, (Reported) Hydrocodone Bit/Acetaminophen (Hydrocodone-Apap 10-325 Tablet), 1 TABLET PO Q6H PRN for moderate or severe pain 4-10, (Reported) ONDANSETRON ODT 4mg tablet (Ondansetron Odt), 1 TAB PO Q6H PRN PRN for nausea/vomiting Past Medical History Past Medical History: No Pertinent History Patient History: Alcoholism Alcohol Use: Heavy Drug Use: none Review of Systems All Other Systems at this time: Reviewed and Negative Physical Exam Vital Signs: Temperature: 97.9, Source: Oral, Heart Rate: 80, Respiratory Rate: 12, BP: 130/89, Pulse Oximetry: 95, Weight: 171.000 Oxygen Flow Rate: 0 Physical Exam I have reviewed the triage vitals. CONST: Well developed and well nourished. In no acute distress HENT: Head Atraumatic EYES: Pupils are equal, round and reactive to light. Normal conjunctiva NECK: Normal range of motion. Supple. CARDIO: Normal rate and regular rhythm. No murmurs, rubs, or gallops. S1, S2. PULM/CHEST: No respiratory distress. Lungs clear to auscultation. No wheeze ABD: Soft and nontender. Nondistended. Bowel sounds normal. No guarding. : Exam deferred MSK: No edema. No deformity. NEURO: Alert and oriented to person, place and time. Moving all extremities SKIN: Warm and dry. PSYCH: Normal mood and affect. Good eye contact. Progress Results/Orders Results/Orders Orders - ARIANNA ARELLANO MD Chest,Single View (07/24/24 09:54) Monitor (07/24/24 09:54) Saline Lock (07/24/24 09:54) Oxygen (07/24/24 09:54) Hs Troponin I W Calculations (07/24/24 12:54) Ct Head (07/24/24 11:07) Urinalysis (07/24/24 13:44) Completed Orders - ARIANNA ARELLANO MD Electrocardiogram (07/24/24 ) Chest,Single View (07/24/24 09:54) Cbc/Diff (07/24/24 09:54) PBNP (07/24/24 09:54) CMP (07/24/24 09:54) Hs Troponin I W Calculations (07/24/24 09:54) Hs Troponin I W Calculations (07/24/24 11:54) Cardiac Ptt (07/24/24 09:54) Ct Head (07/24/24 11:07) Vital Signs 07/24/24 07/24/24 07/24/24 07/24/24 09:29 09:41 09:46 10:39 Temp 97.9 Pulse 72 71 80 Resp 19 22 15 12 B/P (MAP) 154/90 154/90 (111) 130/89 (103) Pulse Ox 94 94 95 O2 Flow Rate 0 0 0 07/24/24 12:14 Temp 97.9 Pulse 69 Resp 19 B/P (MAP) 164/94 (117) Pulse Ox 99 O2 Flow Rate 0 Laboratory Tests Test 07/24/24 09:48 07/24/24 12:21 07/24/24 13:40 White Blood Count 6.9 Red Blood Count 5.53 Hemoglobin 15.7 Hematocrit 46.4 Mean Corpuscular Volume 83.9 Mean Corpuscular Hemoglobin 28.5 Mean Corpuscular Hemoglobin Concent 34.0 Red Cell Distribution Width 15.2 H Platelet Count 267 Mean Platelet Volume 8.0 Neutrophils (%) (Auto) 71.5 Lymphocytes (%) (Auto) 20.5 L Monocytes (%) (Auto) 5.9 Eosinophils (%) (Auto) 1.1 Basophils (%) (Auto) 1.0 Neutrophils # (Auto) 4.9 Lymphocytes # (Auto) 1.4 Monocytes # (Auto) 0.4 Eosinophils # (Auto) 0.1 Basophils # (Auto) 0.1 CBC Comment APTT (Heparin Protocol) 25 L Coagulation Comments Sodium Level 139 Potassium Level 4.2 Chloride Level 106 Carbon Dioxide Level 25.2 Anion Gap 8 Blood Urea Nitrogen 15 Creatinine 0.97 Estimated GFR/1.73 m2 80 BUN/Creatinine Ratio 15.5 Glucose Level 105 H Calcium Level 8.8 Total Bilirubin 0.5 Aspartate Amino Transf (AST/SGOT) 18 Alanine Aminotransferase (ALT/SGPT) 27 Alkaline Phosphatase 91 Troponin I High Sensitivity 8 8 Pro-B-Type Natriuretic Peptide 72 Total Protein 6.7 Albumin 3.6 Globulin 3.1 Albumin/Globulin Ratio 1.2 Chemistry Comments Troponin I High Sens Percent Delta 0 Troponin I Hi Sens Absolute Change 0 Urine Comment EKG/XRAY/CT/US/VASC/MRI EKG : Additional Comment EKG interpreted by GEOFFREY Arellano shows normal sinus rhythm at a rate of 81, normal axis, no FL intervals. No ischemia Chest X-Ray : Additional Comments CHEST RADIOGRAPH Indication: CP Technique: Single frontal view of the chest was obtained Comparison: DI CHEST,SINGLE VIEW on DOS: 05/14/24, DI CHEST,SINGLE VIEW on DOS: 04/09/24 FINDINGS: Lines and Tubes: None Lungs: No focal consolidation. Pleura: No effusion. No pneumothorax. Cardiomediastinal contours: Unremarkable Bones: No acute osseous abnormality. IMPRESSION: No acute cardiopulmonary disease. : Impression EXAM: CT CT HEAD HISTORY: dizziness COMPARISON: None TECHNIQUE: Axial images of the head were obtained and reformatted in coronal and sagittal planes. All CT scans at this medical facility are performed using dose modulation techniques as appropriate to a performed exam including the following: Automated exposure control was utilized; adjustment of the MA and/or KV according to patient size; and use of iterative reconstruction technique. CT Dose: CTDI volume is 61 mGy. Dose-length product is 10 14 mGy*cm FINDINGS: There is no evidence of acute intracranial hemorrhage, mass, mass effect midline shift. There is no hydrocephalus or extra-axial fluid collection. [place]-white matter differentiation is maintained. There is likely a development of venous anomaly in the left lateral frontal lobe. The visualized paranasal sinuses and mastoid air cells are clear. The calvarium is intact. IMPRESSION: 1. No acute intracranial process. HS:Y Medical Decision Making Additional Information 53-year-old male presenting for dizziness. This morning prior to arrival he had a couple of very high blood pressures and I suspect this likely caused his dizziness. He did endorse drinking a lot of energy rate D drinks yesterday. Additionally he is three weeks status post quitting ETOH use and he was previously a heavy alcohol user. Thus I believe that there may be some residual element of withdrawal as well. In the emergency department his blood pressures have been an acceptable level. They are slightly elevated but not dangerously. His lab work is grossly unremarkable. His head CT was negative for any acute i ntracranial hemorrhage. Patient was monitored and felt better after some period of time. On reassessment he felt back at his normal baseline and his vitals were stable. At this point in time he is stable and safe to be discharged home. I advised him to follow up closely with his primary care physician and return to the ED with any acutely worsening symptoms. Departure Disposition: HOME / SELF CARE / HOMELESS Impression: Primary Impression: Dizziness Additional Impression: Hypertension Condition: Improved Discharge Instructions: Dizziness, Hypertension, Adult Additional Instructions: Your blood pressure is not dangerously elevated at this time but it is mildly elevated. You may have underlying hypertension and I recommend follow up with her primary care physician for further evaluation and management of this. I believe that your couple episodes of severely high blood pressure this morning were likely secondary to some mild withdrawal from alcohol as well as the energy drinks that you ate yesterday. Please do a best to stay away from energy drinks and other highly caffeinated beverages. I advise a healthy balanced diet follow up fruits and vegetables and daily exercise. Please ensure the drink plenty of fluids and follow up closely with her primary care physician in the next 2-3 days. Your workup here in the ED was negative for any acute life-threatening emergencies however you may still be at risk and I highly recommend follow up with her primary care physician. Return to the ED with any acutely worsening symptoms. Referrals: NO PRIMARY CARE PROVIDER (PCP) ARIANNA ARELLANO MD July 24, 2024 11:09
[2024-07-24 12:14] VITALS: BP 164/94; PULSE 69; RESP 19; TEMP 97.9; O2SAT 99
--- NOTE | 2024-07-24 12:18 | RADIOLOGY REPORT ---
EXAM: CT CT HEAD HISTORY: dizziness COMPARISON: None TECHNIQUE: Axial images of the head were obtained and reformatted in coronal and sagittal planes. All CT scans at this medical facility are performed using dose modulation techniques as appropriate t o a performed exam including the following: Automated exposure control was utilized; adjustment of th e MA and/or KV according to patient size; and use of iterative reconstruction technique. CT Dose: CTDI volume is 61 mGy. Dose-length product is 10 14 mGy*cm FINDINGS: There is no evidence of acute intracranial hemorrhage, mass, mass effect midline shift. There is no h ydrocephalus or extra-axial fluid collection. [place]-white matter differentiation is maintained. Ther e is likely a development of venous anomaly in the left lateral frontal lobe. The visualized paranasal sinuses and mastoid air cells are clear. The calvarium is intact. IMPRESSION: 1. No acute intracranial process. HS:Y
[2024-07-24 13:58] LABS: BILIRUBIN,URINE NEGATIVE (Neg); CLARITY,URINE CLEAR (Clear); COLOR,URINE YELLOW (Yellow); GLUCOSE, URINE NEGATIVE (Neg); KETONES,URINE NEGATIVE (Neg); LEUKOCYTE ESTERASE ,URINE NEGATIVE (Neg); NITRITES, URINE NEGATIVE (Neg); OCCULT BLOOD,URINE NEGATIVE (Neg); PROTEIN,URINE NEGATIVE (Neg); UROBILINOGEN,URINE 0.2 E.U/dL (0.2-1.0)
[2024-07-24 14:21] LABS: UA COLLECTION TYPE NON-SPECIFIED
== END 2024-07-24 14:39 | disposition home or self-care (01) ==
LOC: ER 09:23
DX: R42 Dizziness and giddiness (principal); I10 Essential (primary) hypertension; R51.9 Headache, unspecified; F10.90 Alcohol use, unspecified, uncomplicated; Z88.2 Allergy status to sulfonamides; Z79.899 Other long term (current) drug therapy; Y90.9 Presence of alcohol in blood, level not specified
CPT/HCPCS: 36415; 70450; 71045; 80053; 81003; 83880; 84484; 85025; 85730; 93005; 99285